=== PATIENT | female | born 1955 | race African-American/Black ===

== ENCOUNTER → 2016-12-24 | Outpatient (CLI) | payer OTHER ==
[~2016-12-24] MED LIST: LISI-515 PO; LISI10TA3 PO
[2016-12-24 07:09] LABS: BASOPHIL # 0.1 TH/MM3 (0-0.2); BASOPHIL % 0.8 % (0.0-2.0); EOSINOPHIL # 0.2 TH/MM3 (0-0.4); EOSINOPHIL % 2.5 % (0.0-4.0); HEMATOCRIT 36.7 % (35.0-46.0); HEMO FLAGS DIFF FINAL; LYMPH % 32.2 % (9.0-44.0); LYMPHOCYTE # 2.1 TH/MM3 (1.0-4.8); MEAN CELL VOLUME 83.2 FL (80.0-100.0); MEAN CORPUSCULAR HGB CONC 33.7 % (32.0-36.0); MONO % 4.3 % (0.0-8.0); NEUT % 60.2 % (16.0-70.0); PLATELET COUNT 391 TH/MM3 (150-450); RED BLOOD COUNT 4.41 MIL/MM3 (4.00-5.30); WHITE BLOOD COUNT 6.6 TH/MM3 (4.0-11.0)
[2016-12-24 07:29] LABS: ALT (GPT) 16 U/L (10-53); ANION GAP 5 MEQ/L (5-15); AST (GOT) 11 U/L (15-37); BICARBONATE 28.7 MEQ/L (21.0-32.0); BLOOD UREA NITROGEN 9 MG/DL (7-18); CHLORIDE 108 MEQ/L (98-107); GLOMERULAR FILTRATION RATE 64 ML/MIN (>89); GLUCOSE,FASTING 93 MG/DL (74-99); POTASSIUM 3.8 MEQ/L (3.5-5.1); SODIUM (NA) 142 MEQ/L (136-145)
[2016-12-24 07:39] LABS: ALKALINE PHOSPHATASE 98 U/L (45-117); HDL CHOLESTEROL 64.9 MG/DL (40.0-60.0); LDL CHOLESTEROL 134 MG/DL (0-99); TOTAL BILIRUBIN ADULT 0.7 MG/DL (0.2-1.0)
== END ==
LOC: CLAB 06:48
PROVIDERS: ATTEND Nurse Practitioner Family
DX: I10 Essential (primary) hypertension (principal)
CPT/HCPCS: 36415; 80053; 80061; 84443; 85025

== ENCOUNTER 2017-04-09 08:59 | Emergency (ER) | payer OTHER ==
[~2017-04-09] VITALS: Ht 154.9 cm; Wt 45.0 kg
[~2017-04-09 08:59] MED LIST changes: -LISI10TA3 PO
[2017-04-09 09:01] VITALS: BP 211/93; PULSE 75; RESP 18; TEMP 98.5; O2SAT 100
[2017-04-09 09:31] VITALS: BP 162/75
--- NOTE | 2017-04-09 10:09 | PD ---
HPI Chief Complaint: Cold / Flu Symptoms Time Seen by Provider: 09:50 Travel History International Travel<30 days: No Contact w/Intl Traveler<30days: No Traveled to known affect area: No History of Present Illness HPI This is a 62-year-old female here with flulike illness 4 days. She reports subjective fevers, body aches, cough. She is reporting intermittent anterior rib pain produced by coughing. Patient has no sick contacts or foreign travel. Symptoms severity is moderate. She has not attempted any [id number] medications for symptom relief. Past medical history of hypertension. She has been out of her HTN meds since Saturday due to insurance purposes. She takes lisinopril 20 mg daily. [facility] Past Medical History Narrative Medical Hypertension Diminished Hearing: No Hypertension: Yes Tetanus Vaccination: < 5 Years Social History Alcohol Use: No Tobacco Use: No Substance Use: No Allergies-Medications (Allergen,Severity, Reaction): Coded Allergies: Penicillins (Verified Allergy, Severe, 04/09/17) Reported Meds & Prescriptions Reported Meds & Active Scripts Active Lisinopril 20 Mg Tab 20 Mg PO DAILY Review of Systems Except as stated in HPI: all other systems reviewed are Neg General / Constitutional: Positive: Fever Eyes: No: Visual changes HENT: No: Headaches Cardiovascular: No: Chest Pain or Discomfort, Palpitations, Diaphoresis, Dyspnea on exertion Respiratory: Positive: Cough, Pleuritic Pain Gastrointestinal: No: Abdominal Pain Genitourinary: No: Dysuria Musculoskeletal: Positive: Myalgias Skin: No Rash Physical Exam Narrative GENERAL: Alert and well-appearing 62-year-old female. No distress. SKIN: Warm and dry. No rash. HEAD: Normocephalic. EYES:No injection or drainage. Ear/nose/throat: Clear nasal discharge. Mild pharyngeal erythema with mild tonsillar hypertrophy and no exudate. Uvula is midline. Airway is patent. NECK: Supple, trachea midline. No meningismus. CARDIOVASCULAR: Regular rate and rhythm. No murmur appreciated. RESPIRATORY: Breath sounds equal bilaterally. No accessory muscle use. Rhonchorous cough. GASTROINTESTINAL: Abdomen soft, non-tender, nondistended. MUSCULOSKELETAL: No cyanosis, or edema. BACK: Nontender without obvious deformity. No CVA tenderness. Data Data Last Documented VS Vital Signs Date Time Temp Pulse Resp B/P (MAP) Pulse Ox O2 Delivery O2 Flow Rate FiO2 04/09/17 09:31 162/75 (104) 04/09/17 09:01 98.5 75 18 100 Orders Orders Electrocardiogram (04/09/17 09:54) Influenzae A/B Antigen (04/09/17 09:54) Chest, Pa & Lat (04/09/17 09:54) MDM Medical Decision Making Medical Screen Exam Complete: Yes Emergency Medical Condition: Yes Differential Diagnosis Influenza, bronchitis, pneumonia, unlikely ACS Narrative Course This is a 62-year-old female here with flulike illness 4 days. She is reporting pleuritic type pain is related only with coughing. She has a rhonchorous cough. Influenza screening is negative. EKG shows sinus bradycardia with no ST elevation or depression. Patient reports she has a history of bradycardia and her heart rate routinely runs in the high 40s to low 60s. All diagnostic studies discussed with patient. She reports symptom improvement and is requesting discharge. She will be treated with azithromycin and Tessalon Perles. She will be given a 1 month's refill of her lisinopril. She is instructed to follow-up with the GI clinic. Return precautions were discussed. Influenza: Negative Chest x-ray: No acute disease EKG: Sinus bradycardia rate of [address] elevation or depression. EKG reviewed by Dr. Sweet. Patient reports her heart rate routinely runs in the high 40-60s. Diagnosis Primary Impression: Bronchitis Referrals: [facility] Additional Instructions: Azithromycin as directed . Tessalon Perles as needed for cough. Lisinopril as directed for blood pressure. Follow-up with the [facility]. Return to the emergency department if he developed new or worsening symptoms. Scripts Benzonatate (Tessalon Perles) 100 Mg Cap 200 MG PO TID Y for COUGH, #12 CAP 0 Refills Prov: Tammie Wood [facility] 04/09/17 Azithromycin (Azithromycin) 250 Mg Tab 250 MG PO DIRECTED for Infection, #6 TAB 0 Refills Take 2 tabs (500 mg) on day 1 then 1 tab daily x 4 days. Prov: Tammie Wood [facility] 04/09/17 Lisinopril (Lisinopril) 20 Mg Tab 20 MG PO DAILY, #30 TAB 0 Refills Prov: Tammie Wood [facility] 04/09/17 Disposition: 01 DISCHARGE HOME Condition: Stable Tammie Wood Apr 09, 2017 10:09
--- NOTE | 2017-04-09 10:21 | RADRPT ---
EXAM DATE/TIME: 04/09/2017 10:11 [place] COMPARISON: No previous studies available for comparison. INDICATIONS : Cold and flu symptoms. MEDICAL HISTORY : Hypertension. SURGICAL HISTORY : None. ENCOUNTER: Initial ACUITY: 4 - 6 days PAIN SCORE: 8/10 LOCATION: Bilateral chest FINDINGS: PA and lateral views of the chest demonstrate the lungs to be symmetrically aerated without evidence of mass, infiltrate or effusion. The cardiomediastinal contours are unremarkable. Osseous structure s are intact with mild S-shaped scoliosis of thoracolumbar spine. CONCLUSION: No acute disease. Daniel Bui MD on April 09, 2017 at 10:18 Board Certified Radiologist. This report was verified electronically.
[2017-04-09] MEDS ORDERED: LISI-515 PO (11:14)
[2017-04-09] MEDS ORDERED: AZIT250T3 PO (11:14)
[2017-04-09] MEDS ORDERED: BENZ100 PO (11:14)
--- NOTE | 2017-04-10 00:13 | EKG ---
Date Performed: 04/09/2017 Time Performed: 10:25:09 PTAGE: 62 years EKG: SINUS BRADYCARDIA SEPTAL MYOCARDIAL INFARCTION ABNORMAL ECG NO PREVIOUS TRACING DOCTOR: Emerson Voss Interpretating Date/Time 04/10/2017 00:12:59
== END 2017-04-09 11:22 | disposition home or self-care (01) ==
LOC: NEPK 08:59
DX: J40 Bronchitis, not specified as acute or chronic (principal); I10 Essential (primary) hypertension
CPT/HCPCS: 71046; 87804; 93005